=== PATIENT | female | born 1990 | race Caucasian/White ===

== ENCOUNTER 2016-09-05 12:58 | Emergency (ER) | payer OTHER ==
[~2016-09-05] VITALS: Ht 182.9 cm; Wt 101.6 kg
[~2016-09-05 12:58] MED LIST: WARF-281 PO; WARF5TAB90 PO
[2016-09-05 12:59] VITALS: TEMP 36.7; Ht 182.9 cm; Wt 101.6 kg
--- NOTE | 2016-09-05 14:00 | DIAGNOSTIC IMAGING REPORT ---
LEFT TIBIA AND FIBULA 2 VIEWS CLINICAL HISTORY: Left leg injury. FINDINGS: AP and lateral views of the left tibia and fibula are correlated with radiographs of left knee dated 06/25/2015. The skeletal structures are well mineralized. No acute fracture is seen. Postoperative change is identified in the proximal tibia. There is a buttress plate along the lateral tibial plateau with several cortical lag screws. The orthopedic hardware appears intact. Chronic posttraumatic change is identified in the lateral tibial plateau. The knee and ankle joints are grossly maintained. Mild soft tissue swelling is suggested around the ankle. IMPRESSION: 1. No acute fracture is seen in the left tibia or fibula. 2. Postoperative and chronic posttraumatic change is noted in the proximal tibia. 3. A soft tissue swelling suggested around ankle. Electronically signed by: Washington Barron M.D. 09/05/2016 1:59 PM Dictated Date/Time: 09/05/2016 1:57 PM
--- NOTE | 2016-09-05 14:01 | DIAGNOSTIC IMAGING REPORT ---
LEFT FOOT 3 VIEWS CLINICAL HISTORY: Left foot injury. FINDINGS: 3 views of left foot are compared to study dated 06/25/2015. The skeletal structures are well mineralized. No fracture is seen. The joint spaces of the foot are well-maintained. There is an ankle joint effusion, and soft tissue swelling is present around the ankle. The soft tissues of the foot are normal in appearance. IMPRESSION: 1. There is no radiographic evidence of fracture in the left foot. 2. Ankle joint effusion and surrounding soft tissue edema. Electronically signed by: Washington Barron M.D. 09/05/2016 2:00 PM Dictated Date/Time: 09/05/2016 1:59 PM
[2016-09-05] MEDS ORDERED: HYDR-5688 PO (14:52)
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
[2016-09-05 15:02] VITALS: BP 168/66; PULSE 78; O2SAT 97
[2017-01-26] MEDS ORDERED: ASPI-390 PO (13:16)
== END 2016-09-05 15:03 | disposition home or self-care (01) ==
LOC: C.EDB 12:59 → C.EDD 15:03
DX: M25.572 Pain in left ankle and joints of left foot (principal); N83.209 Unspecified ovarian cyst, unspecified side; F17.200 Nicotine dependence, unspecified, uncomplicated; Z88.0 Allergy status to penicillin

== ENCOUNTER 2017-01-26 16:52 | Emergency (ER) | payer OTHER ==
[~2017-01-26] VITALS: Ht 182.9 cm; Wt 104.0 kg
[~2017-01-26 16:52] MED LIST changes: +ASPI-390 PO; +HYDR-5688 PO; -WARF-281 PO; -WARF5TAB90 PO
[2017-01-26 16:56] VITALS: TEMP 37.1; Ht 182.9 cm; Wt 104.0 kg
[2017-01-26] MEDS ORDERED: IBUPROFEN 600 MG TAB PO STA (17:17)
[2017-01-26] MEDS ORDERED: IBUP-103 PO (17:25)
--- NOTE | 2017-01-26 17:56 | DIAGNOSTIC IMAGING REPORT ---
R KNEE 1 OR 2 VIEWS ROUTINE HISTORY: 26 years-old Female right knee pain/injury acute right knee pain status post trauma COMPARISON: None available TECHNIQUE: 2 views of the right knee FINDINGS: Moderate joint effusion. No acute fracture, dislocation or significant degenerative changes. 1.7 x 0.7 cm corticated bone fragment within the region of the tibial tuberosity is noted suggesting remote fracture or sequela of [place]-Schlatter disease. There is mild soft tissue swelling about the knee. IMPRESSION: 1. Moderate joint effusion with mild soft tissue swelling about the knee. No acute fracture or dislocation. 2. Corticated bone fragment, 1.7 cm within the region of the tibial tuberosity suggests prior [place]-Schlatter disease or less likely remote fracture fragment. The above report was generated using voice recognition software. It may contain grammatical, syntax or spelling errors. Electronically signed by: Asaf Barbosa M.D. 01/26/2017 5:54 PM Dictated Date/Time: 01/26/2017 5:51 PM
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
[2017-01-26 18:25] VITALS: BP 135/78; PULSE 67; O2SAT 99
== END 2017-01-26 18:25 | disposition home or self-care (01) ==
LOC: C.EDB 16:54 → C.EDD 18:25
DX: M25.561 Pain in right knee (principal); M25.461 Effusion, right knee; M92.51 Juvenile osteochondrosis of proximal tibia; F17.200 Nicotine dependence, unspecified, uncomplicated; Z86.718 Personal history of other venous thrombosis and embolism

== ENCOUNTER 2021-01-13 10:11 | Inpatient (IN) ==
[2021-01-13] MEDS ORDERED: OXYTOCIN 30 UNITS/500 ML BAG IV PRN ×3 (10:32→22:46)
[2021-01-13 11:02] LABS: Hematocrit (blood only) 36.8 % (37-47); Hemoglobin 12.7 g/dL (12.0-16.0); Mean Corpuscular Hemoglobin 32.9 pg (25-34); Mean Corpuscular Hgb Conc 34.5 g/dL (32-36); Mean Corpuscular Volume 95.3 fL (80-100); Mean Platelet Volume 9.4 fL (7.4-10.4); Platelet Count 297 K/uL (130-400); RDW Standard Deviation 48.4 fL (36.4-46.3); Red Blood Count 3.86 M/uL (4.2-5.4); White Blood Count 14.25 K/uL (4.8-10.8)
[2021-01-13] MEDS: LACTATED RINGER'S 1,000 ML IV PRN ×2 (16:07→20:11)
[2021-01-13] MEDS ORDERED: ePHEDrine sulfate 50 MG/ML AMP ONE (19:10)
[2021-01-13] MEDS ORDERED: SODIUM CHLORIDE 0.9% INJ 10 ML VIAL ONE (19:11)
[2021-01-13] MEDS ORDERED: fentaNYL citrate 100 MCG/2 ML VIAL ONE (19:11)
[2021-01-13] MEDS ORDERED: fentaNYL 2MCG/ML ROPIVACAINE 1.25MG/ML 100 ML BAG EPI ONE (19:11)
[2021-01-13] MEDS ORDERED: BUPIVACAINE 0.25% 30 ML VIAL ONE (19:11)
--- NOTE | 2021-01-13 20:09 | Anesthesiology Consultation ---
Date of Service January 13, 2021 Assessment & Plan Chart Review Chart Review: Acceptable Risk for Labor Epidural Consults Requested none History Height/Weight Height: 6 ft Weight: 115.666 kg Allergies Allergy/AdvReac Type Severity Reaction Status Date / Time Penicillins Allergy Intermediate RASH,HIVES Verified 01/13/21 12:13 Medications Home Medications Medication Instructions Recorded Confirmed Last Taken prenat.vits,rafael,tov-ekbz-gjajk 1 tab PO DAILY 01/13/21 01/13/21 01/12/21 22:00 Active Medications Generic Name Dose Route Start Last Admin Trade Name Freq PRN Reason Stop Dose Admin Lactated Ringer's 1,000 mls @ 125 mls/hr 01/13/21 10:32 01/13/21 18:56 Lr IV 01/15/21 10:31 999 mls/hr .Q8H PRN Infusion L&D Protocol Protocol Oxytocin 30 units in 500 mls @ 8 mls/hr 01/13/21 15:36 01/13/21 18:58 Pitocin IV 01/15/21 15:35 0.48 units/hr .Q24H PRN 8 mls/hr Labor Induction/Augmentation Titration Protocol 0.48 UNITS/HR Past Medical History Medical History History of migraine Left knee dislocation Past Family History Family History Brother Depression with anxiety Grandfather (Paternal) Diabetes Grandmother (Maternal) Myocardial infarction Denies family history of Ovarian cancer Prostate cancer Breast cancer Colorectal cancer Past Surgical History Surgical History History of tooth extraction Social History Smoking Status: Current every day smoker tobacco type: cigarettes Smoking cigarettes per day: 5 Do You Dip or Chew Tobacco: No Hx Alcohol Use: No Hx Substance Use: No substance use type: former substance user and marijuana Last Used Substance Other:: PRIOR TO + HPT Physical Exam Vital Signs Last Vital Signs Temp 36.9 C 01/13/21 14:50 Pulse 77 01/13/21 20:08 Resp 20 01/13/21 14:50 BP 131/63 01/13/21 20:08 Pulse Ox 100 01/13/21 20:03 Testing Laboratory Results 01/13/21 10:45
[2021-01-13] MEDS ORDERED: NALOXONE HCL 1 MG in SODIUM CHLORIDE 0.9% 1000ML 1,000 ML IV PRN (20:11)
[2021-01-13] MEDS ORDERED: fentaNYL 2MCG/ML ROPIVACAINE 1.25MG/ML 100 ML BAG EPI PRN (20:11)
[2021-01-13] MEDS ORDERED: diphenhydrAMINE 50 MG/ML VIAL IV PRN (20:11)
[2021-01-13] MEDS ORDERED: NALOXONE HCL 0.4 MG/1 ML VIAL/CARP IV PRN (20:11)
[2021-01-13] MEDS ORDERED: ePHEDrine sulfate 50 MG/ML AMP IV PRN (20:11)
[2021-01-13] MEDS ORDERED: NALBUPHINE HCL INJ 10 MG/ML AMP IV PRN (20:11)
[2021-01-13] MEDS ORDERED: bisacodyL 10 MG SUPP PR PRN (22:46)
[2021-01-13] MEDS ORDERED: oxyCODONE/ACETAMINOPHEN 5mg/325mg TAB PO PRN (22:46)
[2021-01-13] MEDS ORDERED: SUPERCREAM 0.870% 15 GM JAR EXT PRN (22:46)
[2021-01-13] MEDS ORDERED: BENZOCAINE 20% AER SPR 82.5 GM CAN EXT PRN (22:46)
[2021-01-13] MEDS ORDERED: ACETAMINOPHEN W/CODEINE #3 1 TAB PO PRN (22:46)
[2021-01-13] MEDS ORDERED: METHYLERGONOVINE MALEATE 0.2 MG/ML AMP IM ONE (22:46)
[2021-01-13] MEDS ORDERED: DIPHTHERIA/TETANUS/PERTUSSIS 0.5 ML SYR/VIAL IM ONE (22:46)
[2021-01-13] MEDS ORDERED: HYDROCORTISONE ACETATE 25 MG SUPP PR PRN (22:46)
[2021-01-13] MEDS ORDERED: ACETAMINOPHEN 325 MG TAB PO PRN (22:46)
--- NOTE | 2021-01-13 23:09 | Delivery Summary ---
DATE OF SERVICE: 01/13/2021 She is a 3, para 2. She previously had a SIDS with her first . Blood type is A negative, group B strep negative. Called the office the morning of admission, states she was havin g contractions every 5-10 minutes starting in the middle of the night. 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 Sent her up to [facility]. She walked for a while. Eventually, we started her on IV Pitocin, got her contractions prett y regular, ruptured her membranes with meconium-stained amniotic fluid was noted at this time. She r eceived epidural anesthesia. We continued to Pitocin her until she had a good regular pattern, and w ith that, she delivered a live male with about 3 pushes. Shoulders were delivered without dif ficulty. The was held below the placenta and the cord was allowed to pulse for one full minut e, then it was clamped, cut by the father. Cord blood was taken. With IV oxytocin running and IM Me thergine given, the placenta was removed intact. Uterus contracted nicely. Examination of the perin eum revealed no lacerations. Estimated blood loss was 100 mL. Job ID: [id number]
[2021-01-14] MEDS: IBUPROFEN 600 MG TAB PO PRN ×3 (01:49→21:33)
[2021-01-14 07:16] LABS: Hematocrit (blood only) 36.5 % (37-47); Hemoglobin 12.6 g/dL (12.0-16.0); Mean Corpuscular Hemoglobin 32.8 pg (25-34); Mean Corpuscular Hgb Conc 34.5 g/dL (32-36); Mean Corpuscular Volume 95.1 fL (80-100); Mean Platelet Volume 9.3 fL (7.4-10.4); Platelet Count 273 K/uL (130-400); RDW Coefficient of Variation 13.9 % (11.5-14.5); Red Blood Count 3.84 M/uL (4.2-5.4)
[2021-01-14] MEDS: DOCUSATE SODIUM 100 MG CAP PO SCH ×2 (07:27→21:33)
[2021-01-14] MEDS: PRENATAL VITAMIN 1 TAB PO SCH (07:27)
--- NOTE | 2021-01-14 07:55 | Obstetrical Progress Note ---
Date of Service January 14, 2021 Assessment & Plan Admission and Anticipated Discharge Date Admission Date: January 13, 2021 Subjective abdomen soft and non tender no calf tenderness ambulating well vaginal bleeding scant hgb 12.6 Results & Data ([facility]) Vital Signs (Past 12 Hours) Vital Signs Temp Pulse Pulse Resp BP BP Pulse Ox 01/14/21 03:25 36.7 C 65 16 121/73 99 01/14/21 01:40 36.7 C 74 16 102/66 99 01/14/21 00:47 72 18 125/61 01/14/21 00:43 77 97 01/14/21 00:38 71 96 01/14/21 00:33 83 97 01/14/21 00:32 72 136/66 01/14/21 00:28 78 96 01/14/21 00:23 75 97 01/14/21 00:18 79 98 01/14/21 00:17 79 18 130/67 01/14/21 00:13 78 98 01/14/21 00:08 85 98 01/14/21 00:03 82 98 01/14/21 00:02 75 136/73 01/13/21 23:58 82 98 01/13/21 23:53 79 97 01/13/21 23:49 81 18 140/80 01/13/21 23:48 83 98 01/13/21 23:43 82 98 01/13/21 23:38 87 99 01/13/21 23:33 81 18 152/75 H 97 01/13/21 23:28 81 97 01/13/21 23:23 87 97 01/13/21 23:18 83 96 01/13/21 23:17 85 18 147/65 H 01/13/21 23:13 86 97 01/13/21 23:08 88 96 01/13/21 23:03 92 H 98 01/13/21 23:02 88 18 138/65 01/13/21 22:58 92 H 96 01/13/21 22:53 92 H 96 01/13/21 22:48 94 H 96 01/13/21 22:47 93 H 18 150/74 H 01/13/21 22:43 82 98 01/13/21 22:39 74 130/55 L 01/13/21 22:38 78 97 01/13/21 22:33 86 97 01/13/21 22:30 18 01/13/21 22:28 103 H 94 01/13/21 22:27 124 H 89 L 01/13/21 22:24 94 H 136/78 01/13/21 22:23 95 H 100 01/13/21 22:18 85 98 01/13/21 22:13 79 100 01/13/21 22:08 77 98 01/13/21 22:07 78 127/78 01/13/21 22:03 75 98 01/13/21 22:00 18 01/13/21 21:58 75 98 01/13/21 21:53 74 99 01/13/21 21:52 71 132/63 01/13/21 21:48 72 99 01/13/21 21:43 77 97 01/13/21 21:38 77 98 01/13/21 21:37 74 129/76 01/13/21 21:33 77 97 01/13/21 21:30 18 01/13/21 21:28 86 98 01/13/21 21:23 74 98 01/13/21 21:22 73 115/63 01/13/21 21:18 76 98 01/13/21 21:13 75 98 01/13/21 21:08 75 121/56 L 97 01/13/21 21:03 77 99 01/13/21 21:00 18 01/13/21 20:58 78 98 01/13/21 20:53 78 100 01/13/21 20:52 75 125/72 01/13/21 20:48 76 100 01/13/21 20:43 74 100 01/13/21 20:42 71 138/63 01/13/21 20:40 73 92 01/13/21 20:38 69 100 01/13/21 20:33 81 99 01/13/21 20:30 18 01/13/21 20:28 82 100 01/13/21 20:24 36.9 C 01/13/21 20:23 82 100 01/13/21 20:21 72 128/58 L 01/13/21 20:18 84 100 01/13/21 20:17 78 128/65 01/13/21 20:13 77 100 01/13/21 20:09 80 129/61 01/13/21 20:08 81 131/63 100 01/13/21 20:06 75 141/60 H 01/13/21 20:04 75 129/60 01/13/21 20:03 78 100 01/13/21 20:02 74 139/72 01/13/21 20:00 71 18 129/65 01/13/21 19:58 76 144/63 H 100 01/13/21 19:55 76 146/75 H
--- NOTE | 2021-01-14 17:20 | XRay Report ---
XR sacrum coccyx min 2V INDICATION: MN ^Y ^tailbone pain s/p delivery ^CALLED FOR PATIENT @ [id number]. TECHNIQUE: 2 views of the sacrococcygeal spine were obtained. Comparison: None available at the time of this dictation. FINDINGS: No fractures or subluxations are identified. Alignment appears unremarkable. IMPRESSION: No evidence of acute fracture or subluxation. ACT 112: Negative or not required by law. Electronically signed by: Lawson Rodarte M.D. 01/14/2021 5:18 PM
[2021-01-14] MEDS ORDERED: bisacodyL 5 MG TABEC PO SCH (20:00)
[2021-01-15 06:06] LABS: Hematocrit (blood only) 32.1 % (37-47); Hemoglobin 11.4 g/dL (12.0-16.0)
[2021-01-15] MEDS: IBUPROFEN 600 MG TAB PO PRN ×2 (07:23→11:16)
[2021-01-15] MEDS: DOCUSATE SODIUM 100 MG CAP PO SCH (08:28)
[2021-01-15] MEDS: PRENATAL VITAMIN 1 TAB PO SCH (08:28)
--- NOTE | 2021-01-15 11:13 | Obstetrical Progress Note ---
Date of Service January 15, 2021 Assessment & Plan Admission and Anticipated Discharge Date Admission Date: January 13, 2021 Subjective abdomen soft and non tender ambulating well no calf tenderness vaginal bleeding scant hgb 11.4 Results & Data ([facility]) Vital Signs (Past 12 Hours) Vital Signs Temp Pulse Resp BP 01/15/21 07:16 36.7 C 77 16 120/78
== END 2021-01-15 12:05 | disposition home or self-care (01) | DRG 807 ==
LOC: OPB 10:11 → 4S1 10:12 → 4S2 01-14 01:28